=== PATIENT | male | born 1930 | race Caucasian/White ===

== ENCOUNTER 2016-07-05 18:19 | Inpatient (IN) | payer MEDICARE, OTHER ==
[2016-07-05 17:53] LABS: URINE BILIRUBIN SMALL (NEG); URINE BLOOD LARGE (NEG); URINE GLUCOSE (UA) NEGATIVE (NEG); URINE KETONE SMALL (NEG); URINE LEUKOCYTE ESTERASE POSITIVE (NEG); URINE NITRITE POSITIVE (NEG); URINE PH 6.5 (5.0-8.0); URINE PROTEIN MODERATE (NEG)
[2016-07-05 17:54] LABS: URINE APPEARANCE CLOUDY; URINE COLOR DARK YELLOW; URINE OTHER VOLUME 4 ML
[2016-07-05 17:58] LABS: URINE BACTERIA 1+; URINE EPITHELIAL CELLS 0 /[HPF] (0-10)
[2016-07-05 17:59] LABS: URINE WBC 90-120 /[HPF] (0-5)
[~2016-07-05 18:19] MED LIST: ACETAMINOPHEN; ANTIVERT25 MG PO; CALCIUM VIT D; CLARITIN; DOCUSATE PO; HYDROCORTISONE5 MG PO; LOW DOSE ASPIRI81 M1 PO; NORCO 5/3251 TAB PO; RANITIDINE PO; SIMVASTATIN10 MG PO; SIMVASTATIN5 MG PO; TERAZOSIN5 MG PO; TRAMADOL; TYLENOL325 M1 PO; ZANTAC150 MG PO; ZOFRAN ODT4 MG/UDTAB PO
[2016-07-05 18:51] LABS: BASO % 0.1 % (0-2); HCT-HEMATOCRIT 34.2 % (36.0-53.5); HGB-HEMOGLOBIN 11.2 gm/dl (13.5-17.0); IMMATURE GRANULOCYTES ABSOLUTE 0.05 tho/cmm (0-0.03); IMMATURE GRANULOCYTES PERCENT 0.3 % (0-0.3); LYMPH % 5.5 % (20-45); MCH (MEAN CORPUSCULAR HGB) 30.9 pg (28.0-32.0); MCHC MEAN CORPUSCULAR HGB CONC 32.7 % (32.0-36.0); MCV (MEAN CELL VOLUME) 94.2 fl (82.0-96.0); MEAN PLATELET VOLUME 10.4 cmc (9.4-12.4); MONO % 5.4 % (0-12); NEUTROPHIL ABSOLUTE COUNT 16.2 tho/cmm (1.6-8.0); NEUTROPHIL-AUTOMATED 16.2 tho/cmm (1.6-8.0); NEUTROPHILS % 88.7 % (40-80); PLATELET COUNT 145 tho/cmm (150-450); RED BLOOD COUNT 3.63 mil/cmm (4.40-5.70); RED CELL DISTRIBUTION WIDTH 14.3 % (12.4-16.4); WHITE BLOOD COUNT 18.2 tho/cmm (4.0-10.0)
[2016-07-05] MEDS ORDERED: TYLENOL325 M2 PO (18:52)
[2016-07-05] MEDS ORDERED: CALCIUM500 M3 PO (18:53)
[2016-07-05] MEDS ORDERED: VENTOLIN HFA18 G2 INH ×2 (18:53→19:05)
[2016-07-05] MEDS ORDERED: ASPIRIN EC81 MG PO ×2 (18:53→19:05)
[2016-07-05] MEDS ORDERED: COLACE100 M1 PO ×2 (18:55→19:06)
[2016-07-05] MEDS ORDERED: CIPRO500 M2 PO ×2 (18:55→19:06)
[2016-07-05] MEDS ORDERED: CALCIUM CARBON500 M2 PO (19:05)
[2016-07-05] MEDS ORDERED: CLARITIN10 M6 PO (19:06)
[2016-07-05] MEDS ORDERED: INDOMETHACIN50 M1 PO (19:06)
[2016-07-05] MEDS ORDERED: AZO URINARY P97.5 MG PO (19:07)
[2016-07-05] MEDS ORDERED: PRESERVISION A1 EAC4 PO (19:07)
[2016-07-05] MEDS ORDERED: PREDNISONE5 M1 PO (19:07)
[2016-07-05 19:08] LABS: ANION GAP 12 mmol/L (0-20); BLOOD UREA NITROGEN 24 mg/dl (6-24); CALCIUM 8.1 mg/dl (8.5-10.5); CARBON DIOXIDE-VENOUS 26 mmol/L (22-32); CHLORIDE 105 mmol/l (96-110); CREATININE 1.36 mg/dl (0.60-1.30); GLUCOSE 93 mg/dL (70-110); POTASSIUM 3.7 mmol/L (3.7-5.1); SODIUM 139 mmol/L (135-145); eGFR VALUE FOR BLACK 54 mL/Min
[2016-07-05] MEDS ORDERED: ZOCOR10 M1 PO (19:08)
[2016-07-05] MEDS ORDERED: RANITIDINE HCL150 M2 PO (19:08)
[2016-07-05] MEDS ORDERED: TERAZOSIN HCL5 MG PO (19:08)
[2016-07-05] MEDS ORDERED: SIMETHICONE80 M3 PO (19:08)
[2016-07-05] MEDS ORDERED: MILK OF MAGNESIA PO (19:09)
[2016-07-05 19:48] LABS: PROCALCITONIN 0.39 ng/ml (0.05-0.09)
[2016-07-06 04:44] LABS: ANION GAP 11 mmol/L (0-20); BLOOD UREA NITROGEN 24 mg/dl (6-24); CALCIUM 7.7 mg/dl (8.5-10.5); CARBON DIOXIDE-VENOUS 27 mmol/L (22-32); CHLORIDE 106 mmol/l (96-110); CREATININE 1.49 mg/dl (0.60-1.30); GLUCOSE 84 mg/dL (70-110); SODIUM 140 mmol/L (135-145); eGFR VALUE FOR BLACK 49 mL/Min
[2016-07-06 04:53] LABS: BASO % 0.1 % (0-2); EOS % 0.2 % (0-7); HCT-HEMATOCRIT 34.5 % (36.0-53.5); HGB-HEMOGLOBIN 11.2 gm/dl (13.5-17.0); IMMATURE GRANULOCYTES ABSOLUTE 0.05 tho/cmm (0-0.03); IMMATURE GRANULOCYTES PERCENT 0.3 % (0-0.3); LYMPH % 2.9 % (20-45); LYMPH ABSOLUTE COUNT 0.5 tho/cmm (0.8-4.5); MCH (MEAN CORPUSCULAR HGB) 30.9 pg (28.0-32.0); MCHC MEAN CORPUSCULAR HGB CONC 32.5 % (32.0-36.0); MCV (MEAN CELL VOLUME) 95.3 fl (82.0-96.0); MEAN PLATELET VOLUME 10.5 cmc (9.4-12.4); MONO % 7.2 % (0-12); MONOCYTE ABSOLUTE COUNT 1.1 tho/cmm (0.0-1.2); NEUTROPHIL ABSOLUTE COUNT 13.6 tho/cmm (1.6-8.0); NEUTROPHIL-AUTOMATED 13.6 tho/cmm (1.6-8.0); NEUTROPHILS % 89.3 % (40-80); PLATELET COUNT 136 tho/cmm (150-450); RED BLOOD COUNT 3.62 mil/cmm (4.40-5.70); RED CELL DISTRIBUTION WIDTH 14.4 % (12.4-16.4); WHITE BLOOD COUNT 15.3 tho/cmm (4.0-10.0)
[2016-07-07 04:41] LABS: EOS % 0.7 % (0-7); EOSINOPHIL ABSOLUTE COUNT 0.1 tho/cmm (0.0-0.7); HCT-HEMATOCRIT 32.3 % (36.0-53.5); HGB-HEMOGLOBIN 10.3 gm/dl (13.5-17.0); IMMATURE GRANULOCYTES ABSOLUTE 0.02 tho/cmm (0-0.03); IMMATURE GRANULOCYTES PERCENT 0.2 % (0-0.3); LYMPH % 6.9 % (20-45); LYMPH ABSOLUTE COUNT 0.7 tho/cmm (0.8-4.5); MCH (MEAN CORPUSCULAR HGB) 30.5 pg (28.0-32.0); MCHC MEAN CORPUSCULAR HGB CONC 31.9 % (32.0-36.0); MCV (MEAN CELL VOLUME) 95.6 fl (82.0-96.0); MONO % 6.1 % (0-12); MONOCYTE ABSOLUTE COUNT 0.6 tho/cmm (0.0-1.2); NEUTROPHIL ABSOLUTE COUNT 8.3 tho/cmm (1.6-8.0); NEUTROPHIL-AUTOMATED 8.3 tho/cmm (1.6-8.0); NEUTROPHILS % 86.1 % (40-80); PLATELET COUNT 126 tho/cmm (150-450); RED BLOOD COUNT 3.38 mil/cmm (4.40-5.70); RED CELL DISTRIBUTION WIDTH 14.5 % (12.4-16.4); WHITE BLOOD COUNT 9.6 tho/cmm (4.0-10.0)
[2016-07-07 05:01] LABS: BLOOD UREA NITROGEN 26 mg/dl (6-24); CALCIUM 7.8 mg/dl (8.5-10.5); CARBON DIOXIDE-VENOUS 27 mmol/L (22-32); CHLORIDE 110 mmol/l (96-110); CREATININE 1.47 mg/dl (0.60-1.30); SODIUM 143 mmol/L (135-145); eGFR VALUE FOR BLACK 49 mL/Min
[2016-07-07 05:37] LABS: ANION GAP 10 mmol/L (0-20); GLUCOSE 137 mg/dL (70-110); POTASSIUM 4.2 mmol/L (3.7-5.1)
[2016-07-07] MEDS ORDERED: OXYBUTYNIN CHLOR5 M2 PO (12:32)
[2016-07-07] MEDS ORDERED: RANITIDINE HCL150 M3 PO (13:40)
== END 2016-07-07 15:00 | DRG 872 ==
LOC: EDMED 18:19 → EMR2 20:29 → CAR1 21:17
PROVIDERS: Emergency Medicine; Internal Medicine; Physician Assistant; ADMIT Hospitalist
DX: A41.9 Sepsis, unspecified organism (principal); N17.9 Acute kidney failure, unspecified; D69.6 Thrombocytopenia, unspecified; N39.0 Urinary tract infection, site not specified; J44.9 Chronic obstructive pulmonary disease, unspecified; R65.20 Severe sepsis without septic shock; E78.5 Hyperlipidemia, unspecified; M19.90 Unspecified osteoarthritis, unspecified site; H91.10 Presbycusis, unspecified ear; M48.06 Spinal stenosis, lumbar region; M35.3 Polymyalgia rheumatica; Z79.52 Long term (current) use of systemic steroids; N18.9 Chronic kidney disease, unspecified; M25.552 Pain in left hip; W19.XXXA Unspecified fall, initial encounter; Y92.231 Patient bathroom in hospital as the place of occurrence of the external cause; Z79.82 Long term (current) use of aspirin; K21.9 Gastro-esophageal reflux disease without esophagitis; J45.909 Unspecified asthma, uncomplicated; K59.00 Constipation, unspecified; H91.90 Unspecified hearing loss, unspecified ear; J30.9 Allergic rhinitis, unspecified; N40.1 Benign prostatic hyperplasia with lower urinary tract symptoms; R35.0 Frequency of micturition; R39.15 Urgency of urination; R39.11 Hesitancy of micturition; M10.9 Gout, unspecified; R31.9 Hematuria, unspecified
CPT/HCPCS: G0378; G8978-GP-CJ; G8979-GP-CI; J0744; J1580; J1650; J1956; J2405; J7030; J7512